=== PATIENT | female | born 1970 | race Caucasian/White ===

== ENCOUNTER 2017-08-19 19:36 | Inpatient (IN) | payer MEDICARE ==
[2017-08-19] MEDS ORDERED: Sodium Chloride 0.9% 1000 ML 1,000 ML IV STA (20:10)
--- NOTE | 2017-08-19 20:15 | ERPHSYRPT ---
- History of Present Illness Time Seen by Provider: 08/19/17 20:06 Historian: patient Exam Limitations: no limitations Patient Subjective Stated Complaint: mom states that pt has been having upper abd pain, vomiting since last night, and generalized pain, denies fever at home Triage Nursing Assessment: pt alert and oriented, asnwers questions approp. pt ambulatory with steady gait noted. respirations nonlabored. abdf soft, tender to light palpations. bowel sounds present. skin pink warm and dry. Physician History: 47-year-old white female with history of Julián syndrome Chiari, brought by her mother with complaint of a diffuse abdominal pain vomiting 2 times no fever Past medical history includes diverticulitis ulcers Julián syndrome Chiari scoliosis Past surgical history includes colon surgery hysterectomy Timing/Duration: yesterday Activities at Onset: none Quality: cramping Abdominal Pain Onset Location: generalized abdomen Pain Radiation: back Severity of Pain-Max: moderate Severity of Pain-Current: mild Modifying Factors: Improves With: nothing Associated Symptoms: nausea, vomiting, No back, No chest pain, No diaphoresis, No diarrhea, No fever/chills, No fatigue, No headache, No heartburn, No loss of appetite, No neck pain, No rash, No shortness of breath, No syncope Allergies/Adverse Reactions: No Known Drug Allergies Allergy (Unverified 08/19/17 20:03) Hx Tetanus, Diphtheria Vaccination/Date Given: Yes Hx Influenza Vaccination/Date Given: No Hx Pneumococcal Vaccination/Date Given: No Immunizations Up to Date: Yes - Review of Systems Constitutional: No Fever, No Chills Eyes: No Symptoms Ears, Nose, & Throat: No Symptoms Respiratory: No Cough, No Dyspnea Cardiac: No Chest Pain, No Edema, No Syncope Abdominal/Gastrointestinal: Abdominal Pain, Nausea, Vomiting, No Diarrhea, No Constipation, No Hematemesis, No Hematochezia, No Melena, No Dysphagia, No Appetite Changes Genitourinary Symptoms: No Dysuria Musculoskeletal: No Back Pain, No Neck Pain Skin: No Rash Neurological: No Dizziness, No Focal Weakness, No Sensory Changes Psychological: No Symptoms Endocrine: No Symptoms All Other Systems: Reviewed and Negative - Past Medical History Pertinent Past Medical History: Yes GI Medical History: Diverticulitis, Ulcer Other Medical History: julián syndrome, chiari, scoliosis - Past Surgical History Past Surgical History: Yes Gastrointestinal: Colon Resection Female Surgical History: Hysterectomy - Social History Smoking Status: Never smoker Exposure to second hand smoke: No Drug Use: none Patient Lives Alone: No - Female History Hx Last Menstrual Period: hyster Hx Now: No - Nursing Vital Signs Nursing Vital Signs: Initial Vital Signs Temperature 98.1 F 08/19/17 19:52 Pulse Rate 75 08/19/17 19:52 Respiratory Rate 16 08/19/17 19:52 Blood Pressure 158/93 08/19/17 19:52 O2 Sat by Pulse Oximetry 94 L 08/19/17 19:52 Pain Scale Pain Intensity 4 - Physical Exam General Appearance: mild distress Eye Exam: PERRL/EOMI, eyes nml inspection Ears, Nose, Throat Exam: normal ENT inspection, pharynx normal, moist mucous membranes Neck Exam: normal inspection, non-tender, supple, full range of motion Respiratory Exam: normal breath sounds, lungs clear, No respiratory distress Cardiovascular Exam: regular rate/rhythm, normal heart sounds Gastrointestinal/Abdomen Exam: soft, normal bowel sounds, tenderness (mild diffuse tenderness), No distention, No mass, No guarding, No ecchymosis, No pulsatile mass, No rebound, No hepatomegaly, No organomegaly, No splenomegaly, No bruit Back Exam: normal inspection, normal range of motion, No CVA tenderness, No vertebral tenderness Extremity Exam: normal inspection, normal range of motion, pelvis stable Neurologic Exam: alert, oriented x 3, cooperative, normal mood/affect, nml cerebellar function, sensation nml, No motor deficits Skin Exam: normal color, warm, dry SpO2 Interpretation: normal (94%) SpO2: 94 Oxygen Delivery: Room Air - Course Nursing assessment & vital signs reviewed: Yes - CT Exams Abdomen/Pelvis CT Interpretation: Discussed w/radiologist (CT abdomen and pelvis without contrast. No comparisons. Respiration artifact throughout abdomen/pelvis. Moderate sized hiatal hernia with fluid presumed from reflux. Stomach moderately fluid filled with descending duodenal wall thickening. Possibly duodenitis. No free fluid/air. Moderate diffuse fecal stasis with out obstruction scattered diverticulosis without diverticulitis right renal cyst largest 1.6 cm.) Ordered Tests: Active Orders 24 hr Category Date Time Status IV Insertion STAT Care 08/19/17 20:10 Active ABDOMEN AND PELVIS W/0 CONTRAS [CT] Stat Exams 08/19/17 20:10 Taken AMYLASE Stat Lab 08/19/17 20:55 Completed CBC W DIFF Stat Lab 08/19/17 20:55 Completed CMP Stat Lab 08/19/17 20:55 Completed LIPASE Stat Lab 08/19/17 20:55 Completed UA W/RFX UR CULTURE Stat Lab 08/19/17 20:10 Ordered Medication Summary Discontinued Medications Generic Name Dose Route Start Last Admin Trade Name Corinne PRN Reason Stop Dose Admin Sodium Chloride 1,000 mls @ 999 mls/hr 08/19/17 20:10 08/19/17 21:20 Sodium Chloride 0.9% 1000 Ml IV 08/19/17 21:10 999 mls/hr .Q1H1M STA Administration Sodium Chloride Confirm 08/19/17 21:17 Sodium Chloride 0.9% 1000 Ml Administered 08/19/17 21:18 Dose 1,000 mls @ ud .ROUTE .STK-MED ONE Lab/Rad Data: Laboratory Result Diagrams 08/19/17 20:55 08/19/17 20:55 Laboratory Results 08/19/17 08/19/17 Range/Units 20:55 20:55 WBC 16.0 H (4.0-10.5) K/mm3 RBC 5.15 (4.1-5.4) M/mm3 Hgb 16.6 H (12.0-16.0) gm/dl Hct 47.6 H (35-47) % MCV 92.4 (78-100) fl MCH 32.2 H (26-32) pg MCHC 34.9 (32-36) g/dl RDW 12.9 (11.5-14.0) % Plt Count 341 (150-450) K/mm3 MPV 10.3 H (6-9.5) fl Gran % 80.3 H (36.0-66.0) % Lymphocytes % 12.5 L (24.0-44.0) % Monocytes % 6.9 (0.0-12.0) % Eosinophils % 0.1 (0.00-5.0) % Basophils % 0.2 (0.0-0.4) % Basophils # 0.03 (0-0.4) Sodium 136 L (137-145) mmol/L Potassium 3.5 (3.5-5.1) mmol/L Chloride 98 (98-107) mmol/L Carbon Dioxide 25 (22-30) mmol/L Anion Gap 16.9 H (5-15) MEQ/L BUN 12 (7-17) mg/dL Creatinine 0.65 (0.52-1.04) mg/dL Estimated GFR > 60 ML/MIN Glucose 209 H (74-106) mg/dL Calcium 9.5 (8.4-10.2) mg/dL Total Bilirubin 0.60 (0.2-1.3) mg/dL AST 27 (14-36) U/L ALT 18 (0-35) U/L Alkaline Phosphatase 60 (38-126) U/L Serum Total Protein 7.8 (6.3-8.2) g/dL Albumin 4.3 (3.5-5.0) g/dL Amylase 73 (30-110) U/L Lipase 83 (23-300) U/L - Progress Progress: improved Progress Note: 08/19/17 22:47 I've discussed the patient's case with Dr. Mari will place patient on observation provide IV fluids clear liquids only tonight, repeat labs in the morning Diagnoses duodenitis, abdominal pain - Departure Time of Disposition: 22:48 Departure Disposition: Observation Clinical Impression: Duodenitis Abdominal pain Qualifiers: Abdominal location: generalized Qualified Code(s): R10.84 - Generalized abdominal pain Condition: Fair Critical Care Time: No Referrals: MICHAEL ONOFRE [Primary Care Provider] -
[2017-08-19 21:01] LABS: BASOPHIL % 0.2 % (0.0-0.4); Basophil (Absolute #) 0.03 (0-0.4); Eosinophil % 0.1 % (0.00-5.0); Eosinophil (Absolute #) 0.02 (0-0.5); Granulocyte Absolute (ANC) 12.83 (1.4-6.9); Granulocytes % 80.3 % (36.0-66.0); Hematocrit 47.6 % (35-47); Hemoglobin 16.6 gm/dl (12.0-16.0); Lymphocyte (Absolute #) 1.99 (1.0-4.6); Lymphocytes % 12.5 % (24.0-44.0); Mean Cell Volume 92.4 fl (78-100); Mean Corpuscular Hemoglobin 32.2 pg (26-32); Mean Corpuscular Hgb Concent. 34.9 g/dl (32-36); Mean Platelet Volume 10.3 fl (6-9.5); Monocyte (Absolute #) 1.11 (0.0-1.3); Monocytes % 6.9 % (0.0-12.0); Platelet Count 341 K/mm3 (150-450); Red Blood Count 5.15 M/mm3 (4.1-5.4); Red Cell Distribution Width 12.9 % (11.5-14.0)
[2017-08-19] MEDS ORDERED: Sodium Chloride 0.9% 1000 ML 1,000 ML ONE (21:17)
[2017-08-19 21:22] LABS: ALBUMIN 4.3 g/dL (3.5-5.0); ALKALINE PHOSPHATASE 60 U/L (38-126); AMYLASE 73 U/L (30-110); ANION GAP 16.9 MEQ/L (5-15); BLOOD UREA NITROGEN 12 mg/dL (7-17); CHLORIDE 98 mmol/L (98-107); Calcium 9.5 mg/dL (8.4-10.2); Carbon Dioxide 25 mmol/L (22-30); Creatinine 1 0.65 mg/dL (0.52-1.04); Glucose 209 mg/dL (74-106); LIPASE 83 U/L (23-300); Potassium 3.5 mmol/L (3.5-5.1); SGOT/AST 27 U/L (14-36); SODIUM 136 mmol/L (137-145); Total Protein 7.8 g/dL (6.3-8.2)
[2017-08-19 21:29] LABS: SGPT/ALT 18 U/L (0-35)
[2017-08-19 23:17] LABS: Appearance CLEAR (CLEAR); Glucose 500 mg/dL (NEGATIVE); Leukocyte Esterase NEGATIVE (NEGATIVE); Nitrite NEGATIVE (NEGATIVE); Protein,Urine Dip NEGATIVE (Negative); Specific Gravity 1.015 (1.005-1.025)
[2017-08-19 23:18] LABS: Bilirubin NEGATIVE (NEGATIVE); Blood NEGATIVE Ery/ul (0-5); Ketones NEGATIVE (NEGATIVE); Urobilinogen NORMAL mg/dL (0-1)
[2017-08-20] MEDS ORDERED: Sodium Chloride 0.9% 1000 ML 1,000 ML ONE (00:28)
[2017-08-20] MEDS ORDERED: Zofran 4 MG/2 ML VIAL ONE (00:28)
[2017-08-20] MEDS ORDERED: MORPHINE SULFATE 2 MG INJ ONE (00:28)
[2017-08-20] MEDS ORDERED: Zofran 4 MG/2 ML VIAL IV PRN (00:55)
[2017-08-20] MEDS: MORPHINE SULFATE 2 MG INJ IV PRN ×3 (01:01→18:56)
[2017-08-20] MEDS: Sodium Chloride 0.9% 1000 ML 1,000 ML IV SCH ×3 (01:01→22:32)
[2017-08-20 07:05] LABS: BASOPHIL % 0.2 % (0.0-0.4); Basophil (Absolute #) 0.03 (0-0.4); Eosinophil % 0.2 % (0.00-5.0); Eosinophil (Absolute #) 0.03 (0-0.5); Granulocyte Absolute (ANC) 12.48 (1.4-6.9); Granulocytes % 77.9 % (36.0-66.0); Hematocrit 46.7 % (35-47); Hemoglobin 15.8 gm/dl (12.0-16.0); Lymphocytes % 14.3 % (24.0-44.0); Mean Cell Volume 93.8 fl (78-100); Mean Corpuscular Hemoglobin 31.7 pg (26-32); Mean Corpuscular Hgb Concent. 33.8 g/dl (32-36); Mean Platelet Volume 10.3 fl (6-9.5); Monocyte (Absolute #) 1.19 (0.0-1.3); Monocytes % 7.4 % (0.0-12.0); Platelet Count 316 K/mm3 (150-450); Red Blood Count 4.98 M/mm3 (4.1-5.4)
[2017-08-20 07:12] LABS: ALBUMIN 3.8 g/dL (3.5-5.0); ALKALINE PHOSPHATASE 58 U/L (38-126); AMYLASE 93 U/L (30-110); ANION GAP 12.2 MEQ/L (5-15); BLOOD UREA NITROGEN 9 mg/dL (7-17); CHLORIDE 101 mmol/L (98-107); Calcium 8.4 mg/dL (8.4-10.2); Carbon Dioxide 27 mmol/L (22-30); Creatinine 1 0.53 mg/dL (0.52-1.04); Glucose 164 mg/dL (74-106); LIPASE 315 U/L (23-300); Potassium 3.3 mmol/L (3.5-5.1); SGOT/AST 22 U/L (14-36); SGPT/ALT 14 U/L (0-35); SODIUM 136 mmol/L (137-145); Total Protein 6.9 g/dL (6.3-8.2)
--- NOTE | 2017-08-20 07:42 | PCM.HP ---
History of Present Illness - Chief Complaint Chief Complaint: abdominal pain, duodenitis Date: 08/20/17 History of Present Illness: is a 47 year old female. 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 She has been doing well until yesterday she began having abdominal pain low grade fever and "hurting all over". She was initially brought in for a flu swab that was negative and she was not improving and was brought to ED due to the severity of the pain. She has been vomiting but no diarrhea. She does not know when her last bm was. She has pain all over the abdomen but she seems to refer to her bilateral upper quadrants more. She states her back hurts as well. Denies cough or chest pain at this time. - Review of Systems Constitutional: No Fever, No Chills Eyes: No Symptoms Ears, Nose, & Throat: No Symptoms Respiratory: No Cough, No Short Of Breath Cardiac: No Chest Pain, No Edema, No Syncope Abdominal/Gastrointestinal: Abdominal Pain, Nausea, Vomiting, No Diarrhea Genitourinary Symptoms: No Dysuria Musculoskeletal: Back Pain, Myalgias, No Neck Pain Skin: No Rash Neurological: No Dizziness, No Focal Weakness, No Sensory Changes Psychological: No Symptoms Endocrine: No Symptoms Hematologic/Lymphatic: No Symptoms Immunological/Allergic: No Symptoms Medications & Allergies Home Medications: Home Medication List Chlorpheniramine Maleate [Aller-Chlor] 4 mg PO QAM 08/20/17 [History Confirmed 08/20/17] Estrogens, Conjugated [Premarin] 1.25 mg PO QAM 08/20/17 [History Confirmed ] PANTOPRAZOLE 40 mg Tablet [Protonix 40MG Tablet] 40 mg PO QAM 08/20/17 [ History Confirmed 08/20/17] Risperidone [Risperdal] 0.25 mg PO QHS 08/20/17 [History Confirmed 08/20/17] Trazodone HCl [Desyrel] 100 mg PO QHS 08/20/17 [History Confirmed 08/20/17] Allergies/Adverse Reactions: Allergies Allergy/AdvReac Type Severity Reaction Status Date / Time dog dander Allergy Verified 08/20/17 01:26 pollen extracts Allergy Verified 08/20/17 01:26 hay Allergy Uncoded 08/20/17 01:26 - Past Medical History Past Medical History: Yes Neurological History: No Pertinent History ENT History: No Pertinent History Cardiac History: No Pertinent History Respiratory History: No Pertinent History Endocrine Medical History: No Pertinent History GI Medical History: Diverticulitis, Ulcer History: No Pertinent History Pyscho-Social History: No Pertinent History Reproductive Disorders: No Pertinent History Comment: julián syndrome, chiari, scoliosis - Female History Hx Last Menstrual Period: hysterectomy Are you now?: No - Past Surgical History Past Surgical History: Yes Neuro Surgical History: No Pertinent History Cardiac History: No Pertinent History Respiratory Surgery: No Pertinent History GI Surgical History: Colon Resection Genitourinary Surgical Hx: No Pertinent History Musculskeletal Surgical Hx: No Pertinent History Female Surgical History: Hysterectomy - Social History Smoking Status: Never smoker Exposure to second hand smoke: No Alcohol: None Drug Use: none - Physical Exam Vital Signs: Vital Signs - 24 hr Temp Pulse Resp BP Pulse Ox 08/20/17 04:00 98.3 F 63 17 140/64 91 L 08/20/17 01:28 96.1 F 65 18 176/79 95 08/19/17 22:49 94 L 08/19/17 21:53 74 16 148/83 99 08/19/17 19:52 98.1 F 75 16 158/93 94 L General Appearance: obese Neurologic Exam: alert, oriented x 3, cooperative Eye Exam: No scleral icterus, No pale conjunctivae Ears, Nose, Throat Exam: moist mucous membranes Neck Exam: non-tender, supple Respiratory Exam: normal breath sounds, lungs clear, No respiratory distress Cardiovascular Exam: regular rate/rhythm, murmur Gastrointestinal/Abdomen Exam: soft, No normal bowel sounds (hypoactive bowel sounds diffuse tederness with no rebound or guarding), No ecchymosis Back Exam: normal inspection Extremity Exam: normal inspection, pedal edema (trace maye) Skin Exam: normal color, warm, dry Results - Labs Lab/Micro Results: Lab Results-Last 24 Hours 08/20/17 08/20/17 Range/Units 06:40 06:40 WBC 16.0 H (4.0-10.5) K/mm3 RBC 4.98 (4.1-5.4) M/mm3 Hgb 15.8 (12.0-16.0) gm/dl Hct 46.7 (35-47) % MCV 93.8 (78-100) fl MCH 31.7 (26-32) pg MCHC 33.8 (32-36) g/dl RDW 13.0 (11.5-14.0) % Plt Count 316 (150-450) K/mm3 MPV 10.3 H (6-9.5) fl Gran % 77.9 H (36.0-66.0) % Lymphocytes % 14.3 L (24.0-44.0) % Monocytes % 7.4 (0.0-12.0) % Eosinophils % 0.2 (0.00-5.0) % Basophils % 0.2 (0.0-0.4) % Basophils # 0.03 (0-0.4) Sodium 136 L (137-145) mmol/L Potassium 3.3 L (3.5-5.1) mmol/L Chloride 101 (98-107) mmol/L Carbon Dioxide 27 (22-30) mmol/L Anion Gap 12.2 (5-15) MEQ/L BUN 9 (7-17) mg/dL Creatinine 0.53 (0.52-1.04) mg/dL Estimated GFR > 60 ML/MIN Glucose 164 H (74-106) mg/dL Calcium 8.4 (8.4-10.2) mg/dL Total Bilirubin 0.40 (0.2-1.3) mg/dL AST 22 (14-36) U/L ALT 14 (0-35) U/L Alkaline Phosphatase 58 (38-126) U/L Serum Total Protein 6.9 (6.3-8.2) g/dL Albumin 3.8 (3.5-5.0) g/dL Amylase 93 (30-110) U/L Lipase 315 H (23-300) U/L Assessment/Plan (1) Duodenitis Current Visit: Yes Status: Acute Assessment & Plan: continue with pain control and nausea control will try reglan as well for the nausea add docusate for the constipation tylenol and morphine prn pain lovenox for ppx and protonix awaiting the official read of the CT current read per the VIrtual radiology report from the ED physician as actual report is unavailable consider consult for EGD if not improving Code(s): K29.80 - DUODENITIS WITHOUT BLEEDING (2) Hiatal hernia Current Visit: Yes Status: Acute Code(s): K44.9 - DIAPHRAGMATIC HERNIA WITHOUT OBSTRUCTION OR GANGRENE (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
[2017-08-20] MEDS: Reglan 10 MG/2 ML IV SCH ×3 (08:07→16:17)
[2017-08-20] MEDS: TYLENOL 325 MG PO PRN ×2 (08:07→16:17)
[2017-08-20] MEDS: PROTONIX 40 MG IV IV SCH ×3 (08:07→22:32)
--- NOTE | 2017-08-20 08:44 | XRAY ---
Indication: Upper abdominal pain. Multiple contiguous axial images obtained through the abdomen and pelvis without contrast as ordered. Comparison: None Lung bases demonstrates bibasilar dependent atelectasis. No infiltrate or effusion. Heart is not enlarged. Moderate-sized hiatal hernia with intraluminal fluid presumed from gastroesophageal reflux. Abdomen/pelvis degraded by respiration artifact. Stomach is moderately fluid distended. Descending duodenum demonstrates circumferential wall thickening possible duodenitis. No free fluid/air. There is moderate diffuse scattered colonic fecal debris and diverticulosis throughout. Appendix not seen. Previous hysterectomy. No free fluid/air. Suture material in the left midabdomen. 1.6 cm right lower renal cortical cyst. Remaining liver, gallbladder, pancreas, spleen, adrenal glands, kidneys, ureters, bladder, and aorta appear unremarkable for noncontrast exam. Osseous structures demonstrates moderate lumbosacral junction degenerative disc disease, superior L2 Schmorl node, and mild double curvature thoracolumbar scoliosis. Impression: 1. Diffuse respiration artifact. 2. Moderate-sized hiatal hernia that is fluid-filled presumed from gastroesophageal reflux. 3. Descending duodenal wall thickening. Rule out duodenitis. 4. Fecal stasis without obstruction and scattered colonic diverticulosis. 5. Right renal cyst. CTDI 22.57
--- NOTE | 2017-08-20 08:46 | XRAY ---
Indication: Vomiting and cough. Comparison: None Portable chest mildly underinflated with bibasilar infiltrates versus atelectasis, left greater than right. No consolidation/large effusion. Remaining heart and lungs unremarkable. Bony thorax intact with double curvature scoliosis.
[2017-08-20] MEDS ORDERED: NON-FORMULARY ITEM (Estrogens, Conjugated [Premarin] 1.25 MG) PO SCH (10:00)
[2017-08-20] MEDS: ENOXAPARIN SODIUM SQ SCH (11:11)
[2017-08-20] MEDS: ROCEPHIN 1 Gm-D5w 50 ml Bag** 1 G/50 ML IVPB IV SCH (11:11)
[2017-08-20] MEDS: PREMARIN PO SCH (11:12)
[2017-08-20] MEDS: Colace 100 MG PO SCH (11:12)
[2017-08-20] MEDS: Klor Con 10 MEQ PO SCH ×2 (11:12→22:32)
[2017-08-20] MEDS: Zithromax 500 MG/ 250 ML NaCl Premix 500 MG/250 ML IVPB IV SCH (12:15)
[2017-08-20] MEDS ORDERED: NON-FORMULARY ITEM (Trazodone Hcl [Desyrel] 100 MG) PO SCH (22:00)
[2017-08-20] MEDS: DESYREL 50 MG PO SCH (22:32)
[2017-08-21] MEDS: MORPHINE SULFATE 2 MG INJ IV PRN ×3 (02:11→16:47)
[2017-08-21] MEDS: TYLENOL 325 MG PO PRN (05:36)
[2017-08-21 05:38] LABS: BASOPHIL % 0.2 % (0.0-0.4); Basophil (Absolute #) 0.03 (0-0.4); Eosinophil % 0.3 % (0.00-5.0); Eosinophil (Absolute #) 0.06 (0-0.5); Granulocyte Absolute (ANC) 12.69 (1.4-6.9); Granulocytes % 72.6 % (36.0-66.0); Hematocrit 42.1 % (35-47); Hemoglobin 14.1 gm/dl (12.0-16.0); Lymphocyte (Absolute #) 3.42 (1.0-4.6); Lymphocytes % 19.6 % (24.0-44.0); Mean Cell Volume 94.8 fl (78-100); Mean Corpuscular Hemoglobin 31.8 pg (26-32); Mean Corpuscular Hgb Concent. 33.5 g/dl (32-36); Monocyte (Absolute #) 1.27 (0.0-1.3); Monocytes % 7.3 % (0.0-12.0); Platelet Count 301 K/mm3 (150-450); Red Blood Count 4.44 M/mm3 (4.1-5.4); Red Cell Distribution Width 13.1 % (11.5-14.0); White Blood Count 17.5 K/mm3 (4.0-10.5)
[2017-08-21 06:04] LABS: ALBUMIN 3.2 g/dL (3.5-5.0); ALKALINE PHOSPHATASE 51 U/L (38-126); ANION GAP 9.1 MEQ/L (5-15); BLOOD UREA NITROGEN 4 mg/dL (7-17); CHLORIDE 103 mmol/L (98-107); Carbon Dioxide 29 mmol/L (22-30); Creatinine 1 0.59 mg/dL (0.52-1.04); Glucose 122 mg/dL (74-106); LIPASE 39 U/L (23-300); Potassium 3.3 mmol/L (3.5-5.1); SGOT/AST 16 U/L (14-36); SGPT/ALT 12 U/L (0-35); SODIUM 138 mmol/L (137-145)
[2017-08-21] MEDS: Reglan 10 MG/2 ML IV SCH ×3 (07:36→16:56)
--- NOTE | 2017-08-21 08:17 | PCM.NOTE ---
Date and Time: 08/21/17 08 Subjective Assessment: she continues to have severe epigastric abdominal pain as well as pain in her back she has tolerated clears without vomiting but is scared to try anything else. SHe has been afebrile. She is passing gas with no BM. She denies cough or shortness of breath. Objective Exam General Appearance: no apparent distress, alert, obese Neurologic Exam: alert, oriented x 3, cooperative, normal mood/affect, nml cerebellar function, sensation nml, No motor deficits Skin Exam: normal color, warm, dry Eye Exam: PERRL, EOMI, eyes nml inspection Ears, Nose, Throat Exam: normal ENT inspection, pharynx normal, moist mucous membranes Neck Exam: normal inspection, non-tender, supple, full range of motion Respiratory Exam: normal breath sounds, lungs clear, No respiratory distress Cardiovascular Exam: regular rate/rhythm, normal heart sounds Gastrointestinal/Abdomen Exam: soft, normal bowel sounds, tenderness (epigastric ), No distention, No mass, No guarding, No ecchymosis, No rebound Extremity Exam: normal inspection, normal range of motion Back Exam: normal inspection, normal range of motion, No CVA tenderness, No vertebral tenderness Pelvic Exam: deferred Rectal Exam: deferred OBJECTIVE DATA Vital Signs: Vital Signs - 24 hr Temp Pulse Resp BP Pulse Ox 08/21/17 07:00 98 F 78 20 126/78 97 08/21/17 04:00 98.3 F 75 16 136/80 91 L 08/21/17 00:00 98.7 F 56 L 24 135/63 90 L 08/20/17 20:00 98.4 F 47 L 20 126/62 92 L 08/20/17 16:00 98.5 F 72 18 134/77 96 08/20/17 12:00 98 F 76 18 141/67 95 Pain Assessment - Last Documented Pain Intensity 10 Pain Scale Used 0-10 Pain Scale Intake and Output: Intake & Output 08/18/17 08/19/17 08/20/17 08/21/17 11:59 11:59 11:59 11:59 Intake Total 30 4469 Output Total 200 Balance -170 4469 Weight 78.5 kg Lab Results: Lab Results-Last 24 Hours 08/20/17 08/21/17 08/21/17 Range/Units Unknown 05:15 05:15 WBC 17.5 H (4.0-10.5) K/mm3 RBC 4.44 (4.1-5.4) M/mm3 Hgb 14.1 (12.0-16.0) gm/dl Hct 42.1 (35-47) % MCV 94.8 (78-100) fl MCH 31.8 (26-32) pg MCHC 33.5 (32-36) g/dl RDW 13.1 (11.5-14.0) % Plt Count 301 (150-450) K/mm3 MPV 10.0 H (6-9.5) fl Gran % 72.6 H (36.0-66.0) % Lymphocytes % 19.6 L (24.0-44.0) % Monocytes % 7.3 (0.0-12.0) % Eosinophils % 0.3 (0.00-5.0) % Basophils % 0.2 (0.0-0.4) % Basophils # 0.03 (0-0.4) Sodium 138 (137-145) mmol/L Potassium 3.3 L (3.5-5.1) mmol/L Chloride 103 (98-107) mmol/L Carbon Dioxide 29 (22-30) mmol/L Anion Gap 9.1 (5-15) MEQ/L BUN 4 L (7-17) mg/dL Creatinine 0.59 (0.52-1.04) mg/dL Estimated GFR > 60 ML/MIN Glucose 122 H (74-106) mg/dL Hemoglobin A1c 5.70 (4.5-6.0) % Calcium 8.0 L (8.4-10.2) mg/dL Total Bilirubin 0.30 (0.2-1.3) mg/dL AST 16 (14-36) U/L ALT 12 (0-35) U/L Alkaline Phosphatase 51 (38-126) U/L Serum Total Protein 6.0 L (6.3-8.2) g/dL Albumin 3.2 L (3.5-5.0) g/dL Lipase 39 (23-300) U/L Radiology Exams: Radiology Procedures Category Date Time Status CHEST 1 VIEW (PORTABLE) Routine Exams 08/20/17 07:53 Completed Assessment/Plan (1) Duodenitis Current Visit: Yes Status: Acute Assessment & Plan: on protonix 40 iv bid clear liquid diet reglan for the nausea with her persistent epigastric pain and tenderness with luekocytosis and duodenal wall thickening, not wanting to eat, and her chronic mental impairment limiting somewhat the history will have general surgery evaluate to consider egd. 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
[2017-08-21] MEDS: SODIUM CHLORIDE 0.45% W/ 20 mEq KCL 1,000 ML IV SCH (09:03)
[2017-08-21] MEDS: Zithromax 500 MG/ 250 ML NaCl Premix 500 MG/250 ML IVPB IV SCH (10:03)
[2017-08-21] MEDS: ENOXAPARIN SODIUM SQ SCH (11:36)
[2017-08-21] MEDS: PROTONIX 40 MG IV IV SCH ×2 (11:37→23:03)
[2017-08-21] MEDS: ROCEPHIN 1 Gm-D5w 50 ml Bag** 1 G/50 ML IVPB IV SCH (11:39)
[2017-08-21] MEDS: Colace 100 MG PO SCH (11:46)
[2017-08-21] MEDS: SENOKOT 8.6 MG PO SCH (11:46)
[2017-08-21] MEDS: Klor Con 10 MEQ PO SCH ×2 (11:46→23:03)
[2017-08-21] MEDS: PREMARIN PO SCH (11:46)
[2017-08-21] MEDS ORDERED: BABY ASPIRIN 81 MG CHEW PO ONE (11:57)
[2017-08-21] MEDS ORDERED: Nitrostat 0.4 MG Tablet SL PRN (11:57)
[2017-08-21] MEDS ORDERED: LOPRESSOR 5 MG/5 ML INJECTION IV ONE ×3 (17:39→18:23)
--- NOTE | 2017-08-21 17:52 | PCM.NOTE ---
Date and Time: 08/21/171745 Subjective Assessment: as part of pre-evaluation for consideration for egd an ekg was obtained no old was available and it showed a RBBB. With her nonspecific symptoms troponin was checked that was mildly elevated she was given aspirin and a nitro and no real change in her symptoms. Echo was ordered and Dr. Newell was consulted but was called away for emergency before he could see her. THe pain remained vague and nonspecific intermittent. She did then have repeat ekg when she changed to afib/ flutter with RVR at 17:00. on exam she is resting comfortably and denies sob or chest pain and says she is feeling better now her heart rate is irregular at 130 currently. her last troponin was trending down toward normal range. Her O2 has dropped to the 88 to 92% range but no distress NC O2 is added now Objective Exam General Appearance: obese Neurologic Exam: alert, oriented x 3, cooperative Skin Exam: warm, dry Neck Exam: non-tender, supple Respiratory Exam: crackles/rales (bibasilar) Cardiovascular Exam: murmur, tachycardia, irregular Gastrointestinal/Abdomen Exam: soft, normal bowel sounds, tenderness (diffuse mild) OBJECTIVE DATA Vital Signs: Vital Signs - 24 hr Temp Pulse Resp BP Pulse Ox 08/21/17 17:43 94 L 08/21/17 17:40 145 H 22 89 L 08/21/17 17:38 150 H 20 121/67 88 L 08/21/17 16:00 98.3 F 54 L 18 131/68 91 L 08/21/17 12:20 83 08/21/17 11:38 97.9 F 83 18 132/82 91 L 08/21/17 07:00 98 F 78 20 126/78 97 08/21/17 04:00 98.3 F 75 16 136/80 91 L 08/21/17 00:00 98.7 F 56 L 24 135/63 90 L 08/20/17 20:00 98.4 F 47 L 20 126/62 92 L Oxygen-Last 24 hours O2 Percentage 2 Liters = 28% Intake and Output: Intake & Output 08/19/17 08/20/17 08/21/17 08/22/17 11:59 11:59 11:59 11:59 Intake Total 120 Balance 120 Lab Results: Lab Results-Last 24 Hours 08/21/17 08/21/17 Range/Units 11:09 15:10 Troponin I 0.045 H* 0.035 H (0.000-0.034) ng/mL Radiology Exams: Radiology Procedures Category Date Time Status ECHO W/2D AND DOPPLER [US] Routine Exams 08/21/17 15:05 Taken Multi-Disciplinary Progress Notes: Multi-Disciplinary Progress Notes 08/21/17 09:00 (created 08/21/17 12:16) Respiratory Note by Bernadette Watt EKG FAXED TO DR. Lolly ONOFRE Initialized on 08/21/17 12:16 - END OF NOTE Assessment/Plan (1) Atrial flutter with rapid ventricular response Current Visit: Yes Status: Acute Assessment & Plan: add the oxygen she is on telemetry echo done today Dr. Newell previously consulted but was called away on emergency prior to evaluation She has had aspirin. no significant pain at this time troponin trending down suspect type 2 FL at this time trial of 5mg IV metoprolol now and change to po if tolerating therapeutic anticoagulate with eliquis 5mg po bid continue protonix 40 bid for the duodenitis check magnesium and tsh transfer to icu if rate not controlled or clinical deterioration Code(s): I48.92 - UNSPECIFIED ATRIAL FLUTTER (2) NSTEMI (non-ST elevated myocardial infarction) Current Visit: Yes Status: Acute Code(s): I21.4 - NON-ST ELEVATION (NSTEMI) MYOCARDIAL INFARCTION (3) Hypoxemia Current Visit: Yes Status: Acute Code(s): R09.02 - HYPOXEMIA (4) Duodenitis Current Visit: Yes Status: Acute Code(s): K29.80 - DUODENITIS WITHOUT BLEEDING (5) Pneumonia Current Visit: Yes Status: Acute Code(s): J18.9 - PNEUMONIA, UNSPECIFIED ORGANISM (6) Hiatal hernia Current Visit: Yes Status: Acute Code(s): K44.9 - DIAPHRAGMATIC HERNIA WITHOUT OBSTRUCTION OR GANGRENE (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
[2017-08-21] MEDS: ELIQUIS 5 MG TABLET PO SCH ×2 (17:53→23:03)
[2017-08-21] MEDS: Lopressor 50 MG PO SCH (23:03)
[2017-08-21] MEDS: DESYREL 50 MG PO SCH (23:03)
[2017-08-22] MEDS: SODIUM CHLORIDE 0.45% W/ 20 mEq KCL 1,000 ML IV SCH (03:34)
[2017-08-22 06:05] LABS: Hematocrit 41.9 % (35-47); Mean Cell Volume 95.2 fl (78-100); Mean Corpuscular Hemoglobin 31.8 pg (26-32); Mean Corpuscular Hgb Concent. 33.4 g/dl (32-36); Mean Platelet Volume 11.6 fl (6-9.5); Platelet Count 175 K/mm3 (150-450); Red Cell Distribution Width 13.1 % (11.5-14.0); White Blood Count 8.2 K/mm3 (4.0-10.5)
[2017-08-22 07:09] LABS: ALBUMIN 3.2 g/dL (3.5-5.0); BLOOD UREA NITROGEN 5 mg/dL (7-17); Carbon Dioxide 26 mmol/L (22-30); Creatinine 1 0.64 mg/dL (0.52-1.04); Glucose 103 mg/dL (74-106); SGOT/AST 17 U/L (14-36); SGPT/ALT 13 U/L (0-35); Total Protein 6.1 g/dL (6.3-8.2)
[2017-08-22 07:38] LABS: TSH, 3RD Generation 0.205 mIU/L (0.47-4.68)
[2017-08-22 07:57] LABS: ALKALINE PHOSPHATASE 52 U/L (38-126); ANION GAP 11.2 MEQ/L (5-15); CHLORIDE 106 mmol/L (98-107); Calcium 8.4 mg/dL (8.4-10.2); Potassium 3.8 mmol/L (3.5-5.1); SODIUM 139 mmol/L (137-145)
[2017-08-22] MEDS ORDERED: CITROMA 296 ML PO ONE (08:00)
--- NOTE | 2017-08-22 08:05 | PCM.NOTE ---
Date and Time: 08/22/17 0759 Subjective Assessment: she is feeling much better slept all night hungry now wants to eat no bowel movement urinating well no chest pain or shortness of breath no palpitations she has been in sinus rhythm since 7pm last night after the 3rd dose of iv metoprolol Objective Exam General Appearance: no apparent distress, alert Neurologic Exam: alert, oriented x 3, cooperative, normal mood/affect, nml cerebellar function, sensation nml, No motor deficits Skin Exam: normal color, warm, dry Eye Exam: PERRL, EOMI, eyes nml inspection Ears, Nose, Throat Exam: normal ENT inspection, pharynx normal, moist mucous membranes Neck Exam: normal inspection, non-tender, supple, full range of motion Respiratory Exam: normal breath sounds, lungs clear, No respiratory distress Cardiovascular Exam: regular rate/rhythm, normal heart sounds Gastrointestinal/Abdomen Exam: soft, normal bowel sounds, tenderness (left upper quadrant), No distention, No mass, No guarding, No rebound Extremity Exam: normal inspection, normal range of motion Back Exam: normal inspection, normal range of motion, No CVA tenderness, No vertebral tenderness Pelvic Exam: deferred Rectal Exam: deferred OBJECTIVE DATA Vital Signs: Vital Signs - 24 hr Temp Pulse Resp BP Pulse Ox 08/22/17 04:20 97.1 F 66 18 130/61 94 L 08/21/17 23:38 98.5 F 73 18 143/90 95 08/21/17 19:58 98.2 F 76 20 132/80 97 08/21/17 18:03 124/85 08/21/17 17:43 94 L 08/21/17 17:40 145 H 22 89 L 08/21/17 17:38 150 H 20 121/67 88 L 08/21/17 16:00 98.3 F 54 L 18 131/68 91 L 08/21/17 12:20 83 08/21/17 11:38 97.9 F 83 18 132/82 91 L Oxygen-Last 24 hours O2 Percentage 2 Liters = 28% Intake and Output: Intake & Output 08/19/17 08/20/17 08/21/17 08/22/17 11:59 11:59 11:59 11:59 Intake Total 1327 Balance 1327 Lab Results: Lab Results-Last 24 Hours 08/21/17 08/21/17 08/21/17 Range/Units 11:09 15:10 18:00 WBC (4.0-10.5) K/mm3 RBC (4.1-5.4) M/mm3 Hgb (12.0-16.0) gm/dl Hct (35-47) % MCV (78-100) fl MCH (26-32) pg MCHC (32-36) g/dl RDW (11.5-14.0) % Plt Count (150-450) K/mm3 MPV (6-9.5) fl ESR (0-20) mm/hr Sodium (137-145) mmol/L Potassium (3.5-5.1) mmol/L Chloride (98-107) mmol/L Carbon Dioxide (22-30) mmol/L Anion Gap (5-15) MEQ/L BUN (7-17) mg/dL Creatinine (0.52-1.04) mg/dL Estimated GFR ML/MIN Glucose (74-106) mg/dL Lactic Acid (0.4-2.0) Calcium (8.4-10.2) mg/dL Magnesium (1.6-2.3) mg/dL Total Bilirubin (0.2-1.3) mg/dL AST (14-36) U/L ALT (0-35) U/L Alkaline Phosphatase (38-126) U/L Troponin I 0.045 H* 0.035 H 0.029 (0.000-0.034) ng/mL Serum Total Protein (6.3-8.2) g/dL Albumin (3.5-5.0) g/dL TSH 3rd Generation (0.47-4.68) mIU/L 08/21/17 08/22/17 08/22/17 Range/Units 18:00 05:12 05:12 WBC (4.0-10.5) K/mm3 RBC (4.1-5.4) M/mm3 Hgb (12.0-16.0) gm/dl Hct (35-47) % MCV (78-100) fl MCH (26-32) pg MCHC (32-36) g/dl RDW (11.5-14.0) % Plt Count (150-450) K/mm3 MPV (6-9.5) fl ESR 17 (0-20) mm/hr Sodium 139 (137-145) mmol/L Potassium 3.8 (3.5-5.1) mmol/L Chloride 106 (98-107) mmol/L Carbon Dioxide 26 (22-30) mmol/L Anion Gap 11.2 (5-15) MEQ/L BUN 5 L (7-17) mg/dL Creatinine 0.64 (0.52-1.04) mg/dL Estimated GFR > 60 ML/MIN Glucose 103 (74-106) mg/dL Lactic Acid (0.4-2.0) Calcium 8.4 (8.4-10.2) mg/dL Magnesium 2.1 (1.6-2.3) mg/dL Total Bilirubin 0.20 (0.2-1.3) mg/dL AST 17 (14-36) U/L ALT 13 (0-35) U/L Alkaline Phosphatase 52 (38-126) U/L Troponin I (0.000-0.034) ng/mL Serum Total Protein 6.1 L (6.3-8.2) g/dL Albumin 3.2 L (3.5-5.0) g/dL TSH 3rd Generation 0.205 L (0.47-4.68) mIU/L 08/22/17 08/22/17 Range/Units 05:12 05:12 WBC 8.2 (4.0-10.5) K/mm3 RBC 4.40 (4.1-5.4) M/mm3 Hgb 14.0 (12.0-16.0) gm/dl Hct 41.9 (35-47) % MCV 95.2 (78-100) fl MCH 31.8 (26-32) pg MCHC 33.4 (32-36) g/dl RDW 13.1 (11.5-14.0) % Plt Count 175 (150-450) K/mm3 MPV 11.6 H (6-9.5) fl ESR (0-20) mm/hr Sodium (137-145) mmol/L Potassium (3.5-5.1) mmol/L Chloride (98-107) mmol/L Carbon Dioxide (22-30) mmol/L Anion Gap (5-15) MEQ/L BUN (7-17) mg/dL Creatinine (0.52-1.04) mg/dL Estimated GFR ML/MIN Glucose (74-106) mg/dL Lactic Acid 1.0 (0.4-2.0) Calcium (8.4-10.2) mg/dL Magnesium (1.6-2.3) mg/dL Total Bilirubin (0.2-1.3) mg/dL AST (14-36) U/L ALT (0-35) U/L Alkaline Phosphatase (38-126) U/L Troponin I (0.000-0.034) ng/mL Serum Total Protein (6.3-8.2) g/dL Albumin (3.5-5.0) g/dL TSH 3rd Generation (0.47-4.68) mIU/L Radiology Exams: Radiology Procedures Category Date Time Status ECHO W/2D AND DOPPLER [US] Routine Exams 08/21/17 15:05 Taken Multi-Disciplinary Progress Notes: Multi-Disciplinary Progress Notes 08/21/17 09:00 (created 08/21/17 12:16) Respiratory Note by Bernadette Watt EKG FAXED TO DR. Lolly ONOFRE Initialized on 08/21/17 12:16 - END OF NOTE Assessment/Plan (1) Atrial flutter with rapid ventricular response Current Visit: Yes Status: Acute Assessment & Plan: converted to sinus rhythym at 18:30 last night and has remained after she received her 3rd dose of 5mg of iv metoprolol that were given 10 mins apart. Her bp remained stable and she is currently on eliquis and po metoprolol now she remains asymptomatic with no chest pain and her troponin that was minimally elevated is back in normal range EKG continues to show RBBB with no previous to compare to Dr. Newell was unable to see yesterday if continues to improve discussed outpatient followup. Code(s): I48.92 - UNSPECIFIED ATRIAL FLUTTER (2) NSTEMI (non-ST elevated myocardial infarction) Current Visit: Yes Status: Acute Assessment & Plan: started on aspirin suspect type 2 NC will need outpatient f/u. start statin Code(s): I21.4 - NON-ST ELEVATION (NSTEMI) MYOCARDIAL INFARCTION (3) Hypoxemia Current Visit: Yes Status: Resolved Assessment & Plan: on room air now with the heart back in sinus rhty Code(s): R09.02 - HYPOXEMIA (4) Duodenitis Current Visit: Yes Status: Acute Assessment & Plan: improving try to advance diet to regular this am still with constipation but losts of gas try mag citrate Code(s): K29.80 - DUODENITIS WITHOUT BLEEDING (5) Pneumonia Current Visit: Yes Status: Acute Assessment & Plan: improving on Rocephin Code(s): J18.9 - PNEUMONIA, UNSPECIFIED ORGANISM (6) Hiatal hernia Current Visit: Yes Status: Acute Code(s): K44.9 - DIAPHRAGMATIC HERNIA WITHOUT OBSTRUCTION OR GANGRENE (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
[2017-08-22] MEDS ORDERED: LIPITOR 40MG PO STA (08:06)
[2017-08-22] MEDS: PROTONIX 40 MG IV IV SCH (08:36)
[2017-08-22] MEDS: ROCEPHIN 1 Gm-D5w 50 ml Bag** 1 G/50 ML IVPB IV SCH (08:36)
[2017-08-22] MEDS: Colace 100 MG PO SCH (08:36)
[2017-08-22] MEDS: SENOKOT 8.6 MG PO SCH (08:36)
[2017-08-22] MEDS: Klor Con 10 MEQ PO SCH (08:37)
[2017-08-22] MEDS: ELIQUIS 5 MG TABLET PO SCH (08:37)
[2017-08-22] MEDS: Lopressor 50 MG PO SCH (08:38)
[2017-08-22] MEDS ORDERED: ECOTRIN 81 MG PO SCH (10:00)
[2017-08-22 12:06] VITALS: BP 122/61; PULSE 76; O2SAT 96
[2017-08-22 13:23] LABS: Risk Ratio 2.9
[2017-08-22] MEDS: TYLENOL 325 MG PO PRN (15:13)
--- NOTE | 2017-08-22 17:18 | PCM.DS ---
Discharge Summary Date of Admission: 08/21/17 08:11 Date of Discharge: 08/22/2017 Admitting Physician: MICHAEL ONOFRE Consults: Consults on Case 08/21/17 08:12 Consult Surgery ROUTINE 08/21/17 11:59 Cardiology Consult [Notify Strategic Marketing Manager of Admit] ROUTINE Primary Care Provider: MICHAEL ONOFRE Allergies Allergies dog dander Allergy (Verified 08/20/17 01:26) pollen extracts Allergy (Verified 08/20/17 01:26) hay Allergy (Uncoded 08/20/17 01:26) Hospital Summary - Hospital Course Hospital Course: Ms. Mann presented with not feeling well for a day fever chills and slight cough with vomiting and abdominal pain. A CT was done of the abdomen showing possible duodenitis and she had leukocytosis. She was started on protonix 40 mg iv bid and clear liquid diet. SHe had no evidence of bleeding. She was admitted and on day 1 a chest xray done showing concern for pneumonia she was started on azithromycin and ceftriaxone. She continued to have abdominal pain and no appetite and fatigue. 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 We were considering egd and thus and ekg was done that showed RBBB with her nonspecific abdominal pains a troponin was checked and was slightly elevated. She was given aspirin and a trial of nitro that did not help or change anything. Dr. Oneal was consulted and echo obtained. He was unable to evaluate in the hospital and will f/u outpatient. She denied any chest pain or shortness of breath however after this she converted to afib with rvr and was given eliquis 5mg po bid and metoprolol 5mg iv q10 mins for 3 doses and the rate improved from 130 to 150 down to 70 and converted back to sinus rhythm. she was continued on metoprolol po 50 mg bid and remained in sinus rhythm. This lead to tsh which was slightly low with an elevated T4. After starting the metoprolol and eliquis her pain was resolved on day of discharge and she was eating a full diet without difficulty. SHe was given a dose of mag citrate and had a large bowel movement without pain or bleeding. For her pneumonia she will complete coarse of cefdinir. For her paroxysmal atrial fibrillation with rvr and RBBB of unkown duration and elevated troponin that trended to normal she has f/u appointment with Dr. Oneal. Echo results are pending. She was started on atorvastatin, metoprolol and eliquis. For her mildly decreased tsh and elevated T4 continue the beta isabella TPO and thyroglobulin antibodies are pending and a radioactive thyroid uptake is scheduled outpatient for follow up. For the duodenitis pain is resolved continue protonix. - Vitals & Intake/Output Vital Signs: Vital Signs Temperature 98.1 F 08/22/17 12:00 Pulse Rate 76 08/22/17 12:00 Respiratory Rate 18 08/22/17 12:00 Blood Pressure 122/61 08/22/17 12:00 O2 Sat by Pulse Oximetry 96 08/22/17 12:00 Oxygen-Last Documented O2 Percentage 2 Liters = 28% Intake & Output: Intake & Output 08/20/17 08/21/17 08/22/17 08/23/17 11:59 11:59 11:59 11:59 Intake Total 1567 Output Total 400 Balance 1167 Weight 78.5 kg - Lab Result Diagrams: 08/22/17 05:12 08/22/17 05:12 Lab Results-Last 24 Hrs: Lab Results-Last 24 Hours 08/21/17 08/21/17 08/22/17 Range/Units 18:00 18:00 05:10 WBC (4.0-10.5) K/mm3 RBC (4.1-5.4) M/mm3 Hgb (12.0-16.0) gm/dl Hct (35-47) % MCV (78-100) fl MCH (26-32) pg MCHC (32-36) g/dl RDW (11.5-14.0) % Plt Count (150-450) K/mm3 MPV (6-9.5) fl ESR (0-20) mm/hr Sodium (137-145) mmol/L Potassium (3.5-5.1) mmol/L Chloride (98-107) mmol/L Carbon Dioxide (22-30) mmol/L Anion Gap (5-15) MEQ/L BUN (7-17) mg/dL Creatinine (0.52-1.04) mg/dL Estimated GFR ML/MIN Glucose (74-106) mg/dL Lactic Acid (0.4-2.0) Calcium (8.4-10.2) mg/dL Magnesium 2.1 (1.6-2.3) mg/dL Total Bilirubin (0.2-1.3) mg/dL AST (14-36) U/L ALT (0-35) U/L Alkaline Phosphatase (38-126) U/L Troponin I 0.029 (0.000-0.034) ng/mL Serum Total Protein (6.3-8.2) g/dL Albumin (3.5-5.0) g/dL Triglycerides 82 (30-150) mg/dL Cholesterol 134 (50-200) mg/dL LDL Cholesterol 57 (30-100) mg/dL HDL Cholesterol 47 (40-60) mg/dL Heart Disease Risk Ratio 2.9 Thyroxine (T4) (5.53-10.96) ug/dL TSH 3rd Generation (0.47-4.68) mIU/L 08/22/17 08/22/17 08/22/17 Range/Units 05:10 05:12 05:12 WBC (4.0-10.5) K/mm3 RBC (4.1-5.4) M/mm3 Hgb (12.0-16.0) gm/dl Hct (35-47) % MCV (78-100) fl MCH (26-32) pg MCHC (32-36) g/dl RDW (11.5-14.0) % Plt Count (150-450) K/mm3 MPV (6-9.5) fl ESR 17 (0-20) mm/hr Sodium 139 (137-145) mmol/L Potassium 3.8 (3.5-5.1) mmol/L Chloride 106 (98-107) mmol/L Carbon Dioxide 26 (22-30) mmol/L Anion Gap 11.2 (5-15) MEQ/L BUN 5 L (7-17) mg/dL Creatinine 0.64 (0.52-1.04) mg/dL Estimated GFR > 60 ML/MIN Glucose 103 (74-106) mg/dL Lactic Acid (0.4-2.0) Calcium 8.4 (8.4-10.2) mg/dL Magnesium (1.6-2.3) mg/dL Total Bilirubin 0.20 (0.2-1.3) mg/dL AST 17 (14-36) U/L ALT 13 (0-35) U/L Alkaline Phosphatase 52 (38-126) U/L Troponin I (0.000-0.034) ng/mL Serum Total Protein 6.1 L (6.3-8.2) g/dL Albumin 3.2 L (3.5-5.0) g/dL Triglycerides (30-150) mg/dL Cholesterol (50-200) mg/dL LDL Cholesterol (30-100) mg/dL HDL Cholesterol (40-60) mg/dL Heart Disease Risk Ratio Thyroxine (T4) 15.7 H (5.53-10.96) ug/dL TSH 3rd Generation 0.205 L (0.47-4.68) mIU/L 08/22/17 08/22/17 Range/Units 05:12 05:12 WBC 8.2 (4.0-10.5) K/mm3 RBC 4.40 (4.1-5.4) M/mm3 Hgb 14.0 (12.0-16.0) gm/dl Hct 41.9 (35-47) % MCV 95.2 (78-100) fl MCH 31.8 (26-32) pg MCHC 33.4 (32-36) g/dl RDW 13.1 (11.5-14.0) % Plt Count 175 (150-450) K/mm3 MPV 11.6 H (6-9.5) fl ESR (0-20) mm/hr Sodium (137-145) mmol/L Potassium (3.5-5.1) mmol/L Chloride (98-107) mmol/L Carbon Dioxide (22-30) mmol/L Anion Gap (5-15) MEQ/L BUN (7-17) mg/dL Creatinine (0.52-1.04) mg/dL Estimated GFR ML/MIN Glucose (74-106) mg/dL Lactic Acid 1.0 (0.4-2.0) Calcium (8.4-10.2) mg/dL Magnesium (1.6-2.3) mg/dL Total Bilirubin (0.2-1.3) mg/dL AST (14-36) U/L ALT (0-35) U/L Alkaline Phosphatase (38-126) U/L Troponin I (0.000-0.034) ng/mL Serum Total Protein (6.3-8.2) g/dL Albumin (3.5-5.0) g/dL Triglycerides (30-150) mg/dL Cholesterol (50-200) mg/dL LDL Cholesterol (30-100) mg/dL HDL Cholesterol (40-60) mg/dL Heart Disease Risk Ratio Thyroxine (T4) (5.53-10.96) ug/dL TSH 3rd Generation (0.47-4.68) mIU/L - Radiology Exams Ordered Rad Exams-Entire Visit: Radiology Procedures Category Date Time Status ECHO W/2D AND DOPPLER [US] Routine Exams 08/21/17 15:05 Taken THYROID WITH UPTAKE [NUCMED] Routine Exams 08/22/17 17:02 Ordered - Procedures and Test Procedures and Tests throughout Hospitalization: Therapy Orders & Screens 08/21/17 08:28 EKG ROUTINE Comment: Diagnosis: abdominal pain, duodenitis, pneumonia 08/21/17 17:00 EKG Q8H Comment: x 2 Diagnosis: abdominal pain, duodenitis, pneumonia 08/21/17 17:39 Oxygen NASAL CANNULA 2 lpm Comment: Diagnosis: abdominal pain, duodenitis, pneumonia 08/21/17 19:00 EKG STAT Comment: Diagnosis: abdominal pain, duodenitis, pneumonia 08/22/17 09:00 EKG DAILY Comment: Diagnosis: abdominal pain, duodenitis, pneumonia Discharge Exam General Appearance: no apparent distress, alert Neurologic Exam: alert, oriented x 3, cooperative, normal mood/affect, nml cerebellar function, sensation nml, No motor deficits Skin Exam: normal color, warm, dry Eye Exam: PERRL, EOMI, eyes nml inspection Ears, Nose, Throat Exam: normal ENT inspection, pharynx normal, moist mucous membranes Neck Exam: normal inspection, non-tender, supple, full range of motion Respiratory Exam: normal breath sounds, lungs clear, No respiratory distress Cardiovascular Exam: regular rate/rhythm, normal heart sounds Gastrointestinal/Abdomen Exam: soft, No tenderness, No mass Extremity Exam: normal inspection, normal range of motion Back Exam: normal inspection, normal range of motion, No CVA tenderness, No vertebral tenderness Pelvic Exam: deferred Rectal Exam: deferred Final Diagnosis/Problem List - Final Discharge Diagnosis/Problem (1) Atrial flutter with rapid ventricular response Current Visit: Yes Status: Resolved (2) NSTEMI (non-ST elevated myocardial infarction) Current Visit: Yes Status: Acute (3) Hypoxemia Current Visit: Yes Status: Resolved (4) Duodenitis Current Visit: Yes Status: Resolved (5) Pneumonia Current Visit: Yes Status: Acute (6) Hiatal hernia Current Visit: Yes Status: Acute (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 (8) Hyperglycemia Current Visit: Yes Status: Resolved (9) Obesity Current Visit: Yes Status: Chronic - Discharge Discharge Date: 08/22/17 Disposition: Home, Self-Care Condition: Fair Prescriptions: New Apixaban [Eliquis] 5 mg PO BID #60 tablet Atorvastatin Calcium [Lipitor 40Mg] 40 mg PO HS #30 tablet Metoprolol Tartrate 50 mg [Lopressor 50 MG] 50 mg PO BID #60 tablet Cefdinir 300 mg [Omnicef 300 mg] 300 mg PO BID #12 capsule Continue Chlorpheniramine Maleate [Aller-Chlor] 4 mg PO QAM Trazodone HCl [Desyrel] 100 mg PO QHS PANTOPRAZOLE 40 mg Tablet [Protonix 40MG Tablet] 40 mg PO QAM Discontinued Estrogens, Conjugated [Premarin] 1.25 mg PO QAM Risperidone [Risperdal] 0.25 mg PO QHS Instructions: Gastritis, Atrial Fibrillation (DC), Metoprolol Follow up with: MICHAEL ONOFRE [Primary Care Provider] - 1 Week ROBBIE ONEAL [ACTIVE STAFF] - 08/29/17 9:45 am Forms: Discharge Instructions, Patient Portal Information
[2017-08-23] MEDS ORDERED: LIPITOR 40MG PO SCH (22:00)
--- NOTE | 2017-08-25 10:07 | ECHO ---
Transthoracic echocardiographic examination and color Doppler was done on 08/21/2017. INDICATION: Elevated troponin I. IMPRESSION: 1) NO REGIONAL WALL MOTION ABNORMALITY. ESTIMATED GLOBAL LEFT VENTRICULAR EJECTION FRACTION BETWEEN 60 AND 70%. 2) MILD MITRAL REGURGITATION. 3) TRACE TRICUSPID REGURGITATION. RIGHT VENTRICULAR SYSTOLIC PRESSURE OF 36 MM OF MERCURY. The left ventricle is visualized and demonstrated adequate motion of all the segments. Estimated global left ventricular ejection fraction around 60 to 70%. The left ventricular thickness is normal. The mitral valve is seen and this opens adequately. There is mild mitral regurgitation. Left atrium is normal. The aortic valve opens adequately. There is no significant gradient across the left ventricular outflow tract. Right side chambers are normal. There is trace tricuspid regurgitation. The right ventricular systolic pressure of 36 mm of Mercury.
== END 2017-08-22 17:32 | disposition home or self-care (01) | DRG 280 ==
LOC: ED 19:36 → MED SURG 08-20 00:22 → OBSVTOIN 08-21 08:11
PROVIDERS: ADMIT Family Medicine; ATTEND Family Medicine
DX: I48.92 Unspecified atrial flutter (principal); R10.10 Upper abdominal pain, unspecified; M41.9 Scoliosis, unspecified; I82.0 Budd-Chiari syndrome; I21.4 Non-ST elevation (NSTEMI) myocardial infarction; J18.9 Pneumonia, unspecified organism; Q87.89 Other specified congenital malformation syndromes, not elsewhere classified; Z79.01 Long term (current) use of anticoagulants; K29.80 Duodenitis without bleeding; R09.02 Hypoxemia; K44.9 Diaphragmatic hernia without obstruction or gangrene; Z79.899 Other long term (current) drug therapy; Z90.49 Acquired absence of other specified parts of digestive tract; R73.9 Hyperglycemia, unspecified
CPT/HCPCS: 36000; 36415; 71045; 74176; 80053; 80061; 81002; 82150; 83036; 83520; 83605; 83690; 83721; 83735; 84436; 84443; 84484; 85025; 85027; 85652; 86376; 93005; 93306; 94760; 96360; 99285; G0378; J0456; J0696; J1650; J2270; J2405; P9612; A9270-GY

== ENCOUNTER 2018-12-11 16:35 | Emergency (ER) | payer MEDICARE ==
--- NOTE | 2018-12-11 16:45 | ERPHSYRPT ---
- History of Present Illness Time Seen by Provider: 12/11/18 16:45 Source: patient, family Exam Limitations: no limitations Physician History: 48 y/o white female seen at an urgent care center earlier for cough and congestion of 2 day duration. no palpitations or rapid hr sensation. pts hr found to be rapid. told to come to ED. pt denies cp, denies abd pain. pt has a h /o afib with rvr. pt was placed on a beta isabella propranolol 60ER. pts hr at times low. pt saw a new physician who took her off of beta isabella completely approx 1 to 2 weeks ago. 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 Timing/Duration: today Activities at Onset: none Quality: other (no pain) Chest Pain Radiation: no radiation Severity of Pain-Max: none Severity of Pain-Current: none Nitro Today/Relief: no nitro taken today Aspirin Treatment Today: no aspirin today Associated Symptoms: denies symptoms Prior Chest Pain/Cardiac Workup: no prior chest pain Allergies/Adverse Reactions: dog dander Allergy (Verified 08/20/17 01:26) pollen extracts Allergy (Verified 08/20/17 01:26) hay Allergy (Uncoded 08/20/17 01:26) Home Medications: Chlorpheniramine Maleate [Aller-Chlor] 4 mg PO QAM 08/20/17 [History] PANTOPRAZOLE 40 mg Tablet [Protonix 40MG Tablet] 40 mg PO QAM 08/20/17 [ History] Trazodone HCl [Desyrel] 100 mg PO QHS 08/20/17 [History] Hx Tetanus, Diphtheria Vaccination/Date Given: Yes Hx Influenza Vaccination/Date Given: No Hx Pneumococcal Vaccination/Date Given: No - Review of Systems Constitutional: No Symptoms Eyes: No Symptoms Ears, Nose, & Throat: No Symptoms Respiratory: Cough, Other (congestion) Cardiac: Palpitations Abdominal/Gastrointestinal: No Symptoms Genitourinary Symptoms: No Symptoms Musculoskeletal: No Symptoms Skin: No Symptoms Neurological: No Symptoms Psychological: No Symptoms Endocrine: No Symptoms Hematologic/Lymphatic: No Symptoms Immunological/Allergic: No Symptoms All Other Systems: Reviewed and Negative - Past Medical History Pertinent Past Medical History: Yes Neurological History: No Pertinent History ENT History: No Pertinent History Cardiac History: No Pertinent History Respiratory History: No Pertinent History Endocrine Medical History: No Pertinent History GI Medical History: Diverticulitis, Ulcer History: No Pertinent History Psycho-Social History: No Pertinent History Female Reproductive Disorders: No Pertinent History Other Medical History: julián syndrome, chiari, scoliosis - Past Surgical History Past Surgical History: Yes Neuro Surgical History: No Pertinent History Cardiac: No Pertinent History Respiratory: No Pertinent History Gastrointestinal: Colon Resection Genitourinary: No Pertinent History Musculoskeletal: No Pertinent History Female Surgical History: Hysterectomy - Social History Smoking Status: Never smoker Exposure to second hand smoke: No Drug Use: none Patient Lives Alone: No - Nursing Vital Signs Nursing Vital Signs: Initial Vital Signs Temperature 98.5 F 12/11/18 16:35 Pulse Rate 160 H 12/11/18 16:35 Respiratory Rate 22 12/11/18 16:35 Blood Pressure 104/86 12/11/18 16:35 O2 Sat by Pulse Oximetry 96 12/11/18 16:35 Pain Scale Pain Intensity 0 - Physical Exam General Appearance: no apparent distress, alert Eye Exam: PERRL/EOMI, eyes nml inspection Ears, Nose, Throat Exam: normal ENT inspection, moist mucous membranes Neck Exam: normal inspection, non-tender, supple, full range of motion Respiratory Exam: normal breath sounds, lungs clear, No chest tenderness Cardiovascular Exam: tachycardia, irregular Gastrointestinal/Abdomen Exam: soft, normal bowel sounds, No tenderness Pelvic Exam: not done Rectal Exam: not done Back Exam: normal inspection, normal range of motion, vertebral tenderness, No CVA tenderness Extremity Exam: normal inspection, normal range of motion, pelvis stable Neurologic Exam: alert, oriented x 3, cooperative, peeler operator II-XII nml as tested Skin Exam: normal color, warm, dry Lymphatic Exam: No adenopathy SpO2 Interpretation: normal O2 Delivery: Room Air - Course Nursing assessment & vital signs reviewed: Yes EKG Interpreted by Me: RATE (150), Sinus Rhythm, Sinus Tach, Non-specific ST Changes, Other (QI/SIII. new onset tachycardia and nonspecific st t comparison ekg 08/22/17) Ordered Tests: Active Orders 24 hr Category Date Time Status Power Sweeper Operator STAT Care 12/11/18 16:52 Active EKG-ER Only STAT Care 12/11/18 16:52 Active IV Insertion STAT Care 12/11/18 16:52 Active IV Insertion-2nd Peripheral STAT Care 12/11/18 18:23 Active CHEST 1 VIEW (PORTABLE) Stat Exams 12/11/18 18:25 Taken CHEST WITH CONTRAST [CT] Stat Exams 12/11/18 19:13 Taken CBC W DIFF Stat Lab 12/11/18 17:00 Completed CMP Stat Lab 12/11/18 17:00 Completed D-DIMER QUANTITATION Stat Lab 12/11/18 18:59 Completed NT PRO BNP Stat Lab 12/11/18 17:00 Completed PROTIME WITH INR Stat Lab 12/11/18 17:00 Completed TROPONIN Q3H Lab 12/11/18 17:00 Completed TROPONIN Q3H Lab 12/11/18 20:32 Completed TROPONIN Q3H Lab 12/12/18 02:00 Ordered TROPONIN Q3H Lab 12/12/18 05:00 Ordered UA W/RFX UR CULTURE Stat Lab 12/11/18 18:37 Completed Medication Summary Generic Name Dose Route Start Last Admin Trade Name Freq PRN Reason Stop Dose Admin Sodium Chloride 1,000 mls @ 250 mls/hr 12/11/18 18:30 12/11/18 18:42 Sodium Chloride 0.9% 1000 Ml IV 01/10/19 18:29 250 mls/hr .Q4H PAULIE Administration Metoprolol Tartrate 50 mg 12/12/18 22:10 12/11/18 22:38 Lopressor 50 Mg PO 12/12/18 22:11 50 mg STAT ONE Administration Discontinued Medications Generic Name Dose Route Start Last Admin Trade Name Freq PRN Reason Stop Dose Admin Diltiazem HCl 15 mg 12/11/18 17:56 12/11/18 18:10 Cardizem Iv 50 Mg/10 Ml IV 12/11/18 17:57 15 mg STAT ONE Administration Diltiazem HCl Confirm 12/11/18 18:05 Cardizem Iv 50 Mg/10 Ml Administered 12/11/18 18:06 Dose 50 mg IV .STK-MED ONE Furosemide 40 mg 12/11/18 19:07 12/11/18 19:20 Lasix 40 Mg/4 Ml IV 12/11/18 19:08 40 mg STAT ONE Administration Furosemide Confirm 12/11/18 19:10 Lasix 40 Mg/4 Ml Administered 12/11/18 19:11 Dose 40 mg .ROUTE .STK-MED ONE Sodium Chloride 1,000 mls @ 999 mls/hr 12/11/18 17:18 12/11/18 17:27 Sodium Chloride 0.9% 1000 Ml IV 12/11/18 18:18 999 mls/hr .Q1H1M STA Administration Sodium Chloride Confirm 12/11/18 17:23 Sodium Chloride 0.9% 1000 Ml Administered 12/11/18 17:24 Dose 1,000 mls @ ud .ROUTE .STK-MED ONE Ceftriaxone Sodium/Dextrose 1 g in 50 mls @ 100 mls/hr 12/11/18 22:07 22:25 Rocephin 1 Gm-D5w 50 Ml Bag IV 12/11/18 22:36 100 ml/hr STAT STA 100 mls/hr Administration Ceftriaxone Sodium/Dextrose Confirm 12/11/18 22:10 Rocephin 1 Gm-D5w 50 Ml Bag Administered 12/11/18 22:11 Dose 1 g in 50 mls @ ud IV .STK-MED ONE Methylprednisolone Sodium Succinate 125 mg 12/11/18 22:07 12/11/18 22:25 Solu-Medrol 125 Mg IV 12/11/18 22:08 125 mg STAT ONE Administration Methylprednisolone Sodium Succinate Confirm 12/11/18 22:10 Solu-Medrol 125 Mg Administered 12/11/18 22:11 Dose 125 mg .ROUTE .STK-MED ONE Metoprolol Tartrate 5 mg 12/11/18 17:18 12/11/18 17:56 Lopressor 5 Mg/5 Ml Injection IV 12/11/18 17:19 Not Given STAT ONE Metoprolol Tartrate Confirm 12/11/18 17:23 Lopressor 5 Mg/5 Ml Injection Administered 12/11/18 17:24 Dose 5 mg IV .STK-MED ONE Metoprolol Tartrate Confirm 12/11/18 18:04 Lopressor 5 Mg/5 Ml Injection Administered 12/11/18 18:05 Dose 5 mg IV .STK-MED ONE Metoprolol Tartrate 5 mg 12/11/18 18:23 12/11/18 19:04 Lopressor 5 Mg/5 Ml Injection IV 12/11/18 18:24 2.5 mg STAT ONE Administration Metoprolol Tartrate 5 mg 12/11/18 21:21 12/11/18 21:20 Lopressor 5 Mg/5 Ml Injection IV 12/11/18 21:22 5 mg STAT ONE Administration Metoprolol Tartrate 5 mg 12/11/18 22:08 12/11/18 22:25 Lopressor 5 Mg/5 Ml Injection IV 12/11/18 22:09 5 mg STAT ONE Administration Metoprolol Tartrate Confirm 12/11/18 22:36 Lopressor 50 Mg Administered 12/11/18 22:37 Dose 50 mg .ROUTE .STK-MED ONE Lab/Rad Data: Laboratory Result Diagrams 12/11/18 17:00 12/11/18 17:00 Laboratory Results 12/11/18 12/11/18 12/11/18 Range/Units 20:32 18:59 18:37 WBC (4.0-10.5) K/mm3 RBC (4.1-5.4) M/mm3 Hgb (12.0-16.0) gm/dl Hct (35-47) % MCV (78-100) fl MCH (26-32) pg MCHC (32-36) g/dl RDW (11.5-14.0) % Plt Count (150-450) K/mm3 MPV (6-9.5) fl Gran % (36.0-66.0) % Eos # (Auto) (0-0.5) Absolute Lymphs (auto) (1.0-4.6) Absolute Monos (auto) (0.0-1.3) Lymphocytes % (24.0-44.0) % Monocytes % (0.0-12.0) % Eosinophils % (0.00-5.0) % Basophils % (0.0-0.4) % Absolute Granulocytes (1.4-6.9) Basophils # (0-0.4) PT (9.95-12.35) SECONDS INR (0.8-3.0) D-Dimer 1441 H* (215-500) ng/mL Sodium (137-145) mmol/L Potassium (3.5-5.1) mmol/L Chloride (98-107) mmol/L Carbon Dioxide (22-30) mmol/L Anion Gap (5-15) MEQ/L BUN (7-17) mg/dL Creatinine (0.52-1.04) mg/dL Estimated GFR ML/MIN Glucose (74-106) mg/dL Calcium (8.4-10.2) mg/dL Total Bilirubin (0.2-1.3) mg/dL AST (14-36) U/L ALT (0-35) U/L Alkaline Phosphatase (38-126) U/L Troponin I < 0.012 (0.000-0.034) ng/mL NT-Pro-B Natriuret Pep (0-450) pg/mL Serum Total Protein (6.3-8.2) g/dL Albumin (3.5-5.0) g/dL Urine Color YELLOW (YELLOW) Urine Appearance TURBID (CLEAR) Urine pH 5.0 (5-6) Ur Specific [place] 1.029 (1.005-1.025) Urine Protein NEGATIVE (Negative) Urine Ketones NEGATIVE (NEGATIVE) Urine Blood NEGATIVE (0-5) Osbaldo/ul Urine Nitrite NEGATIVE (NEGATIVE) Urine Bilirubin NEGATIVE (NEGATIVE) Urine Urobilinogen 2 (0-1) mg/dL Ur Leukocyte Esterase NEGATIVE (NEGATIVE) Urine WBC (Auto) NONE SEEN (0-5) /HPF Urine RBC (Auto) NONE SEEN (0-2) /HPF U Epithel Cells (Auto) MODERATE (FEW) /HPF Urine Bacteria (Auto) NONE SEEN (NEGATIVE) /HPF Amorphous Crystals MANY (NEGATIVE) /HPF Urine Mucus (Auto) SLIGHT (NEGATIVE) /HPF Urine Culture Reflexed NO (NO) Urine Glucose NEGATIVE (NEGATIVE) mg/dL 12/11/18 12/11/18 12/11/18 Range/Units 17:00 17:00 17:00 WBC (4.0-10.5) K/mm3 RBC (4.1-5.4) M/mm3 Hgb (12.0-16.0) gm/dl Hct (35-47) % MCV (78-100) fl MCH (26-32) pg MCHC (32-36) g/dl RDW (11.5-14.0) % Plt Count (150-450) K/mm3 MPV (6-9.5) fl Gran % (36.0-66.0) % Eos # (Auto) (0-0.5) Absolute Lymphs (auto) (1.0-4.6) Absolute Monos (auto) (0.0-1.3) Lymphocytes % (24.0-44.0) % Monocytes % (0.0-12.0) % Eosinophils % (0.00-5.0) % Basophils % (0.0-0.4) % Absolute Granulocytes (1.4-6.9) Basophils # (0-0.4) PT 12.6 H (9.95-12.35) SECONDS INR 1.11 (0.8-3.0) D-Dimer (215-500) ng/mL Sodium 140 (137-145) mmol/L Potassium 3.7 (3.5-5.1) mmol/L Chloride 108 H (98-107) mmol/L Carbon Dioxide 24 (22-30) mmol/L Anion Gap 11.7 (5-15) MEQ/L BUN 14 (7-17) mg/dL Creatinine 0.77 (0.52-1.04) mg/dL Estimated GFR > 60.0 ML/MIN Glucose 131 H (74-106) mg/dL Calcium 9.6 (8.4-10.2) mg/dL Total Bilirubin 0.40 (0.2-1.3) mg/dL AST 25 (14-36) U/L ALT 20 (0-35) U/L Alkaline Phosphatase 63 (38-126) U/L Troponin I < 0.012 (0.000-0.034) ng/mL NT-Pro-B Natriuret Pep 1460 H (0-450) pg/mL Serum Total Protein 7.1 (6.3-8.2) g/dL Albumin 3.9 (3.5-5.0) g/dL Urine Color (YELLOW) Urine Appearance (CLEAR) Urine pH (5-6) Ur Specific [place] (1.005-1.025) Urine Protein (Negative) Urine Ketones (NEGATIVE) Urine Blood (0-5) Osbaldo/ul Urine Nitrite (NEGATIVE) Urine Bilirubin (NEGATIVE) Urine Urobilinogen (0-1) mg/dL Ur Leukocyte Esterase (NEGATIVE) Urine WBC (Auto) (0-5) /HPF Urine RBC (Auto) (0-2) /HPF U Epithel Cells (Auto) (FEW) /HPF Urine Bacteria (Auto) (NEGATIVE) /HPF Amorphous Crystals (NEGATIVE) /HPF Urine Mucus (Auto) (NEGATIVE) /HPF Urine Culture Reflexed (NO) Urine Glucose (NEGATIVE) mg/dL 07/12/19 Range/Units 17:00 WBC 7.8 (4.0-10.5) K/mm3 RBC 4.27 (4.1-5.4) M/mm3 Hgb 13.5 (12.0-16.0) gm/dl Hct 40.7 (35-47) % MCV 95.3 (78-100) fl MCH 31.6 (26-32) pg MCHC 33.2 (32-36) g/dl RDW 13.5 (11.5-14.0) % Plt Count 355 (150-450) K/mm3 MPV 10.7 H (6-9.5) fl Gran % 54.3 (36.0-66.0) % Eos # (Auto) 0.20 (0-0.5) Absolute Lymphs (auto) 2.75 (1.0-4.6) Absolute Monos (auto) 0.55 (0.0-1.3) Lymphocytes % 35.4 (24.0-44.0) % Monocytes % 7.1 (0.0-12.0) % Eosinophils % 2.6 (0.00-5.0) % Basophils % 0.6 (0.0-0.4) % Absolute Granulocytes 4.21 (1.4-6.9) Basophils # 0.05 (0-0.4) PT (9.95-12.35) SECONDS INR (0.8-3.0) D-Dimer (215-500) ng/mL Sodium (137-145) mmol/L Potassium (3.5-5.1) mmol/L Chloride (98-107) mmol/L Carbon Dioxide (22-30) mmol/L Anion Gap (5-15) MEQ/L BUN (7-17) mg/dL Creatinine (0.52-1.04) mg/dL Estimated GFR ML/MIN Glucose (74-106) mg/dL Calcium (8.4-10.2) mg/dL Total Bilirubin (0.2-1.3) mg/dL AST (14-36) U/L ALT (0-35) U/L Alkaline Phosphatase (38-126) U/L Troponin I (0.000-0.034) ng/mL NT-Pro-B Natriuret Pep (0-450) pg/mL Serum Total Protein (6.3-8.2) g/dL Albumin (3.5-5.0) g/dL Urine Color (YELLOW) Urine Appearance (CLEAR) Urine pH (5-6) Ur Specific [place] (1.005-1.025) Urine Protein (Negative) Urine Ketones (NEGATIVE) Urine Blood (0-5) Osbaldo/ul Urine Nitrite (NEGATIVE) Urine Bilirubin (NEGATIVE) Urine Urobilinogen (0-1) mg/dL Ur Leukocyte Esterase (NEGATIVE) Urine WBC (Auto) (0-5) /HPF Urine RBC (Auto) (0-2) /HPF U Epithel Cells (Auto) (FEW) /HPF Urine Bacteria (Auto) (NEGATIVE) /HPF Amorphous Crystals (NEGATIVE) /HPF Urine Mucus (Auto) (NEGATIVE) /HPF Urine Culture Reflexed (NO) Urine Glucose (NEGATIVE) mg/dL - Progress Progress: re-examined Air Movement: good Progress Note: 12/11/18 20:42 i reviewed pt lab, ekg, and cxr results with pts mother who has been in room entire time except outside room when placing ivs. i also reviewed work up results several times. i have compared all 4 ekgs performed today in ED to three performed on 08/21/17. the findings are similar. pts rhythm appears to change instantly and several times during that stay as well as todays stay. it does appear there were 2 ekgs today where the rhythm on monitor was double reading rate. but she has also had true ventricular tachycardia. we have had difficulty with iv access since her admission here. we initially did get a 22 gauge in right forearm and a 20 gauge in the left thumb. pts bp was low so i gave a bolus of ns iv. hr was 150s with a sbp of 104 to 91 then 84. so i stopped bolus, gave 15mg iv cardizem. no sig change of hr. we continued bolus and repeat sbp was 105 so 2.5mg iv lopressor given and bolus continued. heart rate appeared to respond dropping into the 70s while sbp improved to 110s to 120s. hr increased to 140s spontaneously and then would spontaneously decrease to 100s without any intervention. abnormal results of workup include and elevated bnp and elevated d dimer. we were unable to place a 20 gauge iv into this pt. Tk, nurse body designer, was contacted. after an hour wait he still had not arrived so RNs attempted another 20 gauge iv in the right AC. they were successful. pt and mother have been kept informed frequently of the plan of tx and care plan. 12/11/18 22:11 cta chest-no definite pulm emboli. evaluation mildly limited due to respiration artifact. [id number] ant sup mediastinal mass, thymoma vs lymphadenopathy. had d/w pts mother who is pts medial power of civil rights attorney, same issue as 07/2017. pt was seen by slide fastener chain assembler and placed on metoprolol. she is responding to this. she was taken off her long acting beta isabella a week ago and sx recurred. will give rx home metoprolol tartrate, tx bronchitis and give rx for daily lasix and potassium. mom agrees with this plan 12/11/18 23:01 sx improved. Blood Culture(s) Obtained: No Antibiotics given: No Counseled pt/family regarding: lab results, diagnosis, rad results - Departure Departure Disposition: Home Clinical Impression: Chronic atrial fibrillation with RVR, Bronchitis, Elevated brain natriuretic peptide (BNP) level Condition: Stable Critical Care Time: Yes Critical Care Time(excluding separately billable procedures): 30-74 minutes Referrals: DOCTOR,NO FAMILY [Primary Care Provider] - Additional Instructions: drink plenty of fluids. follow up with primary doctor and slide fastener chain assembler on Friday12/14/18 for further management. Take medications as prescribed. return to ED of symptoms present. Prescriptions: Azithromycin 250 mg [Zithromax 250 MG TABLET] 250 mg PO ZPACK #6 tablet Furosemide 20 mg [Lasix 20 mg] 20 mg PO DAILY #5 tablet Metoprolol Tartrate 50 mg [Lopressor 50 MG] 50 mg PO BID #10 tablet Potassium Chloride 10 Meq Tab* [Klor Con 10 MEQ] 10 meq PO DAILY #5 tab Prednisone 5 mg [Deltasone 5 mg] 5 mg PO TID #12 tablet
[2018-12-11] MEDS ORDERED: Sodium Chloride 0.9% 1000 ML 1,000 ML IV STA (17:18)
[2018-12-11 17:22] LABS: INR 1.11 (0.8-3.0); PROTIME 12.6 SECONDS (9.95-12.35)
[2018-12-11] MEDS ORDERED: LOPRESSOR 5 MG/5 ML INJECTION IV ONE ×4 (17:23→22:08)
[2018-12-11] MEDS ORDERED: Sodium Chloride 0.9% 1000 ML 1,000 ML ONE ×2 (17:23→18:33)
[2018-12-11] MEDS: LOPRESSOR 5 MG/5 ML INJECTION IV ONE ×4 (17:27→19:04)
[2018-12-11 17:28] LABS: BASOPHIL % 0.6 % (0.0-0.4); Basophil (Absolute #) 0.05 (0-0.4); Eosinophil % 2.6 % (0.00-5.0); Granulocyte Absolute (ANC) 4.21 (1.4-6.9); Granulocytes % 54.3 % (36.0-66.0); Hematocrit 40.7 % (35-47); Hemoglobin 13.5 gm/dl (12.0-16.0); Lymphocyte (Absolute #) 2.75 (1.0-4.6); Lymphocytes % 35.4 % (24.0-44.0); Mean Cell Volume 95.3 fl (78-100); Mean Corpuscular Hemoglobin 31.6 pg (26-32); Mean Corpuscular Hgb Concent. 33.2 g/dl (32-36); Mean Platelet Volume 10.7 fl (6-9.5); Monocyte (Absolute #) 0.55 (0.0-1.3); Monocytes % 7.1 % (0.0-12.0); Platelet Count 355 K/mm3 (150-450); Red Blood Count 4.27 M/mm3 (4.1-5.4); Red Cell Distribution Width 13.5 % (11.5-14.0); White Blood Count 7.8 K/mm3 (4.0-10.5)
[2018-12-11 17:36] LABS: ALBUMIN 3.9 g/dL (3.5-5.0); ALKALINE PHOSPHATASE 63 U/L (38-126); ANION GAP 11.7 MEQ/L (5-15); BLOOD UREA NITROGEN 14 mg/dL (7-17); CHLORIDE 108 mmol/L (98-107); Calcium 9.6 mg/dL (8.4-10.2); Carbon Dioxide 24 mmol/L (22-30); Creatinine 1 0.77 mg/dL (0.52-1.04); Glucose 131 mg/dL (74-106); NT PRO BNP 1460 pg/mL (0-450); Potassium 3.7 mmol/L (3.5-5.1); SGOT/AST 25 U/L (14-36); SGPT/ALT 20 U/L (0-35); SODIUM 140 mmol/L (137-145); Total Protein 7.1 g/dL (6.3-8.2)
[2018-12-11] MEDS ORDERED: Cardizem IV 50 MG/10 ML IV ONE ×2 (17:56→18:05)
[2018-12-11] MEDS ORDERED: Sodium Chloride 0.9% 1000 ML 1,000 ML IV SCH (18:30)
[2018-12-11 18:48] LABS: Amourphous Crystal MANY /HPF (NEGATIVE); Appearance TURBID (CLEAR); Bilirubin NEGATIVE (NEGATIVE); Blood NEGATIVE Ery/ul (0-5); Epithelial Cells MODERATE /HPF (FEW); Glucose NEGATIVE (NEGATIVE); Ketones NEGATIVE (NEGATIVE); Leukocyte Esterase NEGATIVE (NEGATIVE); Mucus SLIGHT /HPF (NEGATIVE); Nitrite NEGATIVE (NEGATIVE); Protein,Urine Dip NEGATIVE (Negative); Specific Gravity 1.029 (1.005-1.025); Urobilinogen 2 mg/dL (0-1)
[2018-12-11 18:49] LABS: Bacteria NONE SEEN /HPF (NEGATIVE); RBC NONE SEEN /HPF (0-2); WBC NONE SEEN /HPF (0-5)
[2018-12-11] MEDS ORDERED: Lasix 40 MG/4 ML IV ONE (19:07)
[2018-12-11] MEDS ORDERED: Lasix 40 MG/4 ML ONE (19:10)
[2018-12-11] MEDS ORDERED: solu-MEDROL 125 MG IV ONE (22:07)
[2018-12-11] MEDS ORDERED: ROCEPHIN 1 Gm-D5w 50 ml Bag** 1 G/50 ML IVPB IV STA (22:07)
[2018-12-11] MEDS ORDERED: solu-MEDROL 125 MG ONE (22:10)
[2018-12-11] MEDS ORDERED: ROCEPHIN 1 Gm-D5w 50 ml Bag** 1 G/50 ML IVPB IV ONE (22:10)
[2018-12-11] MEDS ORDERED: Lopressor 50 MG ONE (22:36)
[2018-12-11 23:25] VITALS: O2SAT 96
[2018-12-11 23:40] VITALS: BP 108/70; PULSE 88
--- NOTE | 2018-12-12 05:43 | XRAY ---
Indication: Elevated d-dimer. Tachycardia. History atrial fibrillation and Julián syndrome. Multiple contiguous axial images obtained through the chest using 80 cc of Isovue-370 contrast and PE protocol. Comparison: None There is satisfactory opacification of the pulmonary arteries. However mild respiration artifact limits evaluation of the more distal lobar and segmental branches, especially through the lower lobes. No gross filling defect or pulmonary embolus. Heart is not enlarged. Aorta is normal in course and caliber. There is a 5 x 7 x 5 cm anterior superior mediastinal noncalcified soft tissue mass, thymoma versus lymphadenopathy. Examination of the lung parenchyma demonstrates bilateral dependent and bibasilar atelectasis. No suspicious pulmonary mass, infiltrate, or effusion. Bony thorax intact. Limited upper abdomen demonstrates fatty liver and 1.1 cm right mid renal cyst. Impression: 1. Pulmonary embolus evaluation limited by respiration artifact. No gross pulmonary embolus. 2. Anterior superior mediastinal mass. Rule out thymoma versus lymphadenopathy. 3. Incidental fatty liver and right renal cyst. CTDI 20.16
--- NOTE | 2018-12-12 05:45 | XRAY ---
Indication: Cough and congestion. Comparison: August 20, 2017. Portable chest is negative for focal infiltrate, consolidation, or large effusion. Heart is not enlarged. Bony thorax intact again with mild double curvature scoliosis. Impression: Nonacute chest.
[2018-12-12] MEDS ORDERED: Lopressor 50 MG PO ONE (22:10)
== END 2018-12-11 23:50 | disposition home or self-care (01) ==
LOC: ED 16:35
DX: I48.2 Chronic atrial fibrillation (principal); J40 Bronchitis, not specified as acute or chronic; R79.89 Other specified abnormal findings of blood chemistry; Z79.899 Other long term (current) drug therapy; Q93.82 Williams syndrome
CPT/HCPCS: 36000; 36415; 71045; 71260; 80053; 81001; 83880; 84484; 85025; 85379; 85610; 93005; 93041; 96360; 96361; 96365; 96374; 96375; 96376; 99285; 99291; J0696; J1940; J2930; A9270-GY

== ENCOUNTER 2022-01-18 14:30 | Emergency (ER) | payer MEDICARE ==
[2022-01-18 14:53] VITALS: O2SAT 99
--- NOTE | 2022-01-18 15:05 | ERPHSYRPT ---
- History of Present Illness Source: patient, other (Mother) Exam Limitations: other Patient Subjective Stated Complaint: Patient fell 4 or 5 days ago and hit her head/face. Patient has had a headache since the fall. C/O head/face pain to left side. Triage Nursing Assessment: Patient ambulated back to ED. She is alert and oriented. Patient with bruising and swelling around left eye; purple, green, and yellow. Patient wears glasses. PERRL. Small bruise also noted to bridge of nose. 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 Pt has a large L anastasiia-orbital ecchymotic area. She is on Eliquis for Afib. Mother states that she has a h/o migraine headaches but that she is a little worried because of the large L anastasiia-orbital ecchymotic area. LOC/cervical pain/chest pain/abdominal pain/LE pain/UE pain/hip pain/T and L-spine pain all denied. Pt is intellectually challenged. Occurred: other (01/10/22) Severity: mild Head Injury Location: frontal Method of Injury: fell Loss of Consciousness: no loss of consciousness, dazed Associated Symptoms: No nausea, No vomiting, No abdominal pain, No shortness of breath, No heartburn, No diaphoresis, No cough, No chills, No chest pain, No fever, No headaches, No loss of appetite, No malaise, No rash, No syncope, No seizure, No weakness Allergies/Adverse Reactions: dog dander Allergy (Verified 01/18/22 14:38) pollen extracts Allergy (Verified 01/18/22 14:38) hay Allergy (Uncoded 01/18/22 14:38) Home Medications: PANTOPRAZOLE 40 mg Tablet [Protonix 40MG Tablet] 40 mg PO QAM 08/20/17 [History] Trazodone HCl [Desyrel] 100 mg PO QHS 08/20/17 [History] Methimazole 2.5 mg PO DAILY 01/18/22 [History] Metoprolol Tartrate 50 mg [Lopressor 50 MG] 1 tab PO BID 01/18/22 [History] Mirabegron [Myrbetriq] 1 tab PO DAILY 01/18/22 [History] Naratriptan HCl [Amerge] 1 tab PO DAILY PRN 01/18/22 [History] Pravastatin Sodium 1 tab PO DAILY 01/18/22 [History] Semaglutide [Ozempic] 0.5 mg SQ WEEKLY 01/18/22 [History] Hx Tetanus, Diphtheria Vaccination/Date Given: Yes Hx Influenza Vaccination/Date Given: No Hx Pneumococcal Vaccination/Date Given: No Immunizations Up to Date: Yes Travel Risk - International Travel Have you traveled outside of the country in past 3 weeks: No - Coronavirus Screening Are you exhibiting any of the following symptoms?: Yes Symptoms: Headaches/Body Aches/Fatigue Close contact with a COVID-19 positive Pt in past 14-21 Days: No - Vaccine Status Have you recieved a Covid-19 vaccination: Yes Oxygen Therapy Technician: Moderna - Vaccination Dates Date of 2cond Vaccination (if applicable): 2020 - Review of Systems Constitutional: No Symptoms Eyes: No Symptoms Ears, Nose, & Throat: No Symptoms Respiratory: No Symptoms Cardiac: No Symptoms Abdominal/Gastrointestinal: No Symptoms Genitourinary Symptoms: No Symptoms Musculoskeletal: No Symptoms Skin: No Symptoms Neurological: No Symptoms Psychological: No Symptoms Endocrine: No Symptoms Hematologic/Lymphatic: No Symptoms Immunological/Allergic: No Symptoms - Past Medical History Pertinent Past Medical History: Yes Neurological History: Migraines ENT History: No Pertinent History Cardiac History: High Cholesterol, Hypertension, Other Respiratory History: No Pertinent History Endocrine Medical History: Hyperthyroidism GI Medical History: Diverticulitis, Ulcer History: No Pertinent History Psycho-Social History: Anxiety, Depression Female Reproductive Disorders: No Pertinent History Other Medical History: julián syndrome, chiari, scoliosis, insomnia, A-fib - Past Surgical History Past Surgical History: Yes Neuro Surgical History: No Pertinent History Cardiac: No Pertinent History Respiratory: No Pertinent History Gastrointestinal: Colon Resection Genitourinary: No Pertinent History Musculoskeletal: No Pertinent History Female Surgical History: Hysterectomy - Social History Smoking Status: Never smoker Exposure to second hand smoke: No Drug Use: none Patient Lives Alone: No Significant Family History: no pertinent family hx - Nursing Vital Signs Nursing Vital Signs: Initial Vital Signs Temperature 97.6 F 01/18/22 14:41 Pulse Rate 83 01/18/22 14:41 Respiratory Rate 18 01/18/22 14:41 Blood Pressure 112/72 01/18/22 14:41 O2 Sat by Pulse Oximetry 99 01/18/22 14:41 Pain Scale Pain Intensity 5 WNL - Fei Coma Score Best Eye Response ([place]): (4) open spontaneously Best Verbal Response ([place]): (5) oriented Best Motor Response ([place]): (6) obeys commands Fei Total: 15 - Physical Exam General Appearance: no apparent distress Head Injury: raccoon eyes (Large L periorbital ecchymotic area) Eye Exam: bilateral eye: normal inspection, PERRL, EOMI ENT Exam: airway nml, hearing grossly normal, No evidence of ENT injury, No clear fluid (ears), No clear fluid (nose), No midface instability, No decreased hearing, No hemotympanum Neck Exam: supple, trachea midline, full range of motion, normal alignment, normal inspection, No focal neuro deficit, No limited range of motion, No muscle spasm, No paraspinous muscle tender, No pain on movement of neck, No stiff neck, No tenderness, No tender lateral, No mid-line tenderness, No meningismus, No mass, No Brudzinski, No Kernig's, No carotid bruit Cardiovascular/Respiratory Exam: chest non-tender, normal breath sounds, regular rate/rhythm, heart sounds normal Gastrointestinal/Abdominal Exam: soft, non tender, no distention Back Exam: normal inspection, normal range of motion, No CVA tenderness, No vertebral tenderness Extremity Exam: non-tender, normal range of motion, normal inspection, normal capillary refill Mental Status Exam: alert, oriented x 3, cooperative hospitality associate Exam: normal hearing, normal speech, PERRL Coordination/Gait Exam: normal gait, normal cerebellar function, negative Romberg's sign Motor/Sensory Exam: no motor deficit, no sensory deficit, no pronator drift, negative Babinski's sign DTR Exam: bicep (R): 2+, bicep (L): 2+ Skin Exam: normal color, warm, dry, No rash Lymphatic Exam: No adenopathy SpO2 Interpretation: normal SpO2: 99 O2 Delivery: Room Air - Course Nursing assessment & vital signs reviewed: Yes - CT Exams Head CT Interpretation: Discussed w/radiologist (CT head negative) Maxillofacial Bones CT Interpretation: Discussed w/radiologist (No fx) Ordered Tests: Active Orders 24 hr Category Date Time Status FACIAL BONES WO CONTRAST [CT] Stat Exams 01/18/22 14:51 Completed HEAD WITHOUT CONTRAST [CT] Stat Exams 01/18/22 14:50 Completed - Progress Progress: improved Progress Note: 01/18/22 21:37 Pt/mother refused all pain meds during stay Counseled pt/family regarding: diagnosis, need for follow-up, rad results - Departure Departure Disposition: Home Clinical Impression: Contusion of face, Minor head injury Condition: Stable Critical Care Time: No Referrals: BULMARO DIOR [Primary Care Provider] - Follow up/PCP as directed Instructions: Closed Head Injury (DC) Additional Instructions: Motrin/Tylenol for pain Follow up with your family MD Return to ER as needed
--- NOTE | 2022-01-18 15:52 | XRAY ---
Indication: Left eye contusion following fall 5-6 days ago. Multiple contiguous axial images obtained through the head without contrast. Comparison: None Normal appearing brain parenchyma, ventricles, and bony calvarium for patient's age. Visualized paranasal sinuses and mastoid or cells are clear. CT facial bones reported separately. Impression: Normal CT head without contrast exam.
--- NOTE | 2022-01-18 15:55 | XRAY ---
Indication: Left eye contusion following fall 5-6 days ago. Multiple contiguous axial images obtained through the facial bones. Sagittal and coronal reformatted images obtained. Comparison: None Mild left supraorbital soft tissue swelling. No acute fracture, suspicious bony lesions, or radiopaque foreign body. Orbits including roof, skelton, and floors intact. Paranasal sinuses and nasal passages are clear. Incidental nasal septal deviation to the right and small left middle turbinate christy bullosa. Mild right TMJ degenerative changes. Visualized cervical spine intact with incidental mild C5-C6 degenerative changes and C6-T1 fusion. Remaining visualized noncontrasted soft tissues are unremarkable. Impression: 1. Mild left supraorbital soft tissue swelling. No acute facial bone fracture. 2. Incidental right TMJ/C5-C6 degenerative changes, left middle turbinate christy bullosa, and minimal nasoseptal deviation.
[2022-01-18 16:11] VITALS: BP 112/77
[2022-01-18 16:18] VITALS: PULSE 85
== END 2022-01-18 16:26 | disposition home or self-care (01) ==
LOC: ED 14:30
DX: S00.12XA Contusion of left eyelid and periocular area, initial encounter (principal); S09.90XA Unspecified injury of head, initial encounter; W19.XXXA Unspecified fall, initial encounter; Q93.82 Williams syndrome; R51.9 Headache, unspecified; E78.5 Hyperlipidemia, unspecified; I10 Essential (primary) hypertension; Z79.01 Long term (current) use of anticoagulants; Z79.899 Other long term (current) drug therapy
CPT/HCPCS: 70450; 70486; 99283